=== PATIENT | female | born 1950 | race Caucasian/White ===

== ENCOUNTER 2017-08-22 21:17 | Emergency (ER) | payer MEDICARE, OTHER ==
[2017-08-22] MEDS ORDERED: DIPHENHYDRAMINE 50 MG INJ IV (23:00)
[2017-08-22] MEDS: KETOROLAC 30 MG INJ IV (23:23)
[2017-08-22] MEDS: METOCLOPRAMIDE 10 MG INJ IV (23:23)
[2017-08-22] MEDS: SOD CHLORIDE 0.9% 500 ML IV (23:23)
[2017-08-22 23:40] LABS: ADD MAN DIFF? NO
[2017-08-22 23:44] LABS: BASOPHIL # 0.1 10^3/ul (0.0-0.1); BASOPHILS % 0.5 % (0.0-2.0); EOSINOPHILS # 0.4 10^3/ul (0.0-0.5); EOSINOPHILS % 4.1 % (0.0-7.0); HEMOGLOBIN 17.1 g/dl (12.0-16.0); LYMPHOCYTES # 3.5 10^3/ul (0.8-2.9); LYMPHOCYTES % 36.1 % (15.0-51.0); MEAN CORPUSCULAR HEMOGLOBIN 32.2 pg (29.0-33.0); MEAN CORPUSCULAR HGB CONC 35.6 g/dl (32.0-37.0); MEAN CORPUSCULAR VOLUME 90.4 fl (82.0-101.0); MEAN PLATELET VOLUME 10.6 fl (7.4-10.4); MONOCYTE # 0.9 10^3/ul (0.3-0.9); MONOCYTES % 8.9 % (0.0-11.0); NEUTROPHIL # 4.9 10^3/ul (1.6-7.5); NEUTROPHILS % 50.2 % (39.0-77.0); PLATELET COUNT 334 10^3/UL (140-415); RED BLOOD COUNT 5.31 10^6/ul (4.20-5.40); RED CELL DISTRIBUTION WIDTH 12.3 % (11.5-14.5)
[2017-08-22 23:44] LABS: WHITE BLOOD COUNT 9.7 10^3/ul (4.8-10.8)
[2017-08-23 00:04] LABS: INR 0.91; PROTIME 12.3 Sec (11.9-14.9)
[2017-08-23 01:02] LABS: ANION GAP 16 (8-16); BLOOD UREA NITROGEN 16 mg/dl (7-20); CALCIUM 9.7 mg/dl (8.4-10.2); CARBON DIOXIDE 30 mmol/L (21-31); CHLORIDE 101 mmol/L (97-110); CREATININE 0.65 mg/dl (0.44-1.00); GLUCOSE 151 mg/dl (70-220); POTASSIUM 4.1 mmol/L (3.5-5.1); SODIUM 143 mmol/L (135-144)
[2017-08-23 01:24] LABS: TROPONIN-I < 0.012 ng/ml (0.00-0.12)
== END 2017-08-23 03:00 | disposition home or self-care (01) ==
LOC: FTE 08-23 03:00
DX: R51 Headache (principal); R07.9 Chest pain, unspecified; I10 Essential (primary) hypertension
CPT/HCPCS: 36415; 71045; 80048; 84484; 85025; 85610; 85730; 93005; 96374; 96375; 99285-25